=== PATIENT | female | born 1995 | race African-American/Black ===

== ENCOUNTER 2017-03-13 20:42 | Emergency (ER) | payer OTHER ==
[~2017-03-13] VITALS: Ht 180.3 cm; Wt 70.8 kg
[2017-03-13 21:58] LABS: HEMATOCRIT 43.1 % (37.0-47.0); HEMOGLOBIN 14.3 gm/dL (12.0-15.0); MCH 30.3 pg (26.0-34.0); MCHC 33.3 g/dL (28.0-37.0); MCV 91.1 fL (80.0-100.0); RBC 4.72 mil/uL (4.20-5.00); RDW 12.9 % (10.5-14.5); WBC 9.2 thou/uL (4.0-11.0)
[2017-03-13 21:59] LABS: URINE BILIRUBIN NEGATIVE (Negative); URINE BLOOD NEGATIVE (Negative); URINE COLOR YELLOW; URINE GLUCOSE-RANDOM* NEGATIVE (Negative); URINE KETONES TRACE (Negative); URINE NITRITE NEGATIVE (Negative); URINE PROTEIN (DIPSTICK) TRACE (Negative); URINE UROBILINOGEN 0.2 E.U./dl (0.2-1.0)
[2017-03-13 22:10] LABS: AMP/METHAMP Negative (Negative); BARBITURATES Negative (Negative); BENZODIAZEPINES Negative (Negative); COCAINE Negative (Negative); METHADONE Negative (Negative); OPIATES Negative (Negative); PCP Negative (Negative); THC POSITIVE (Negative)
[2017-03-13 22:10] LABS: ANION GAP 8 mmol/L (7-16); BUN 16 mg/dL (7-18); CALCIUM 9.1 mg/dL (8.5-10.1); CHLORIDE 104 mmol/L (98-107); CO2 26 mmol/L (21-32); CREATININE 0.9 mg/dL (0.6-1.0); GLUCOSE 108 mg/dL (74-106); POTASSIUM 3.4 mmol/L (3.5-5.1); SODIUM 138 mmol/L (136-145)
[2017-03-13 22:15] LABS: ALKALINE PHOSPHATASE 39 U/L (46-116); SGOT 13 U/L (15-37); SGPT 15 U/L (30-65); TOTAL BILIRUBIN 1.1 mg/dL (<0.1-1.0)
[2017-03-13 22:34] LABS: ACETAMINOPHEN < 2 ug/mL (10-30); SALICYLATE < 2.8 mg/dL (2.8-20.0)
[2017-03-14] MEDS ORDERED: NOHOMEMEDICATIONS (07:24)
[2017-03-14 15:46] VITALS: BP 100/54
== END 2017-03-14 15:47 | disposition still patient (30) ==
LOC: ER 20:42
PROVIDERS: Emergency Medicine
DX: R45.851 Suicidal ideations (principal); Z91.5 Personal history of self-harm; F17.210 Nicotine dependence, cigarettes, uncomplicated

== ENCOUNTER 2018-11-20 19:31 | Emergency (ER) | payer OTHER ==
[~2018-11-20] VITALS: Ht 180.3 cm; Wt 62.1 kg
[~2018-11-20 19:31] MED LIST: NOHOMEMEDICATIONS
[2018-11-20 20:55] VITALS: BP 111/85
== END 2018-11-20 20:56 | disposition home or self-care (01) ==
LOC: ER 19:31
DX: J06.9 Acute upper respiratory infection, unspecified (principal); F17.210 Nicotine dependence, cigarettes, uncomplicated

== ENCOUNTER 2018-12-04 21:48 | Emergency (ER) | payer OTHER ==
[~2018-12-04] VITALS: Ht 180.3 cm; Wt 62.1 kg
[2018-12-04] MEDS ORDERED: PROMETH-CODEIN 65 ML PO (23:43)
[2018-12-04] MEDS ORDERED: MUCINEX DM ER1 EACH PO (23:43)
[2018-12-05 00:01] VITALS: BP 108/72
== END 2018-12-05 00:02 | disposition home or self-care (01) ==
LOC: ER 21:48
PROVIDERS: Emergency Medicine
DX: J34.89 Other specified disorders of nose and nasal sinuses (principal); R59.0 Localized enlarged lymph nodes; R05 Cough; R11.0 Nausea; G43.909 Migraine, unspecified, not intractable, without status migrainosus